=== PATIENT | male | born 1990 | race Two or more races ===

== ENCOUNTER 2023-08-04 15:51 | Emergency (ER) | payer BC, OTHER ==
[~2023-08-04] VITALS: Ht 177.8 cm; Wt 102.2 kg
[2023-08-04 16:00] VITALS: BP 143/75; PULSE 87; RESP 18; O2SAT 98
[2023-08-04] MEDS ORDERED: TRIA0.1O TOP (17:22)
[2023-08-04] MEDS ORDERED: [UNRECOGNIZED DRUG - CODE] EX (17:22)
[2023-08-04] MEDS ORDERED: MUPI2OIN2 EX (17:22)
== END 2023-08-04 17:20 | disposition home or self-care (01) ==
LOC: ER 15:51
DX: B35.4 Tinea corporis (principal); N48.1 Balanitis; Z79.899 Other long term (current) drug therapy